=== PATIENT | male | born 1995 | race Caucasian/White ===

== ENCOUNTER 2016-05-12 12:18 | Emergency (ER) | payer OTHER | END 2016-05-12 12:35 | disposition home or self-care (01) | LOC: CED 12:18 | DX: T40.1X1A Poisoning by heroin, accidental (unintentional), initial encounter (principal); T43.621A Poisoning by amphetamines, accidental (unintentional), initial encounter; Y92.9 Unspecified place or not applicable; F17.200 Nicotine dependence, unspecified, uncomplicated | CPT/HCPCS: 99282 ==